=== PATIENT | female | born 1990 | race Caucasian/White ===

== ENCOUNTER 2017-04-06 14:43 | Emergency (ER) | payer SELFPAY ==
[~2017-04-06] VITALS: Ht 180.3 cm; Wt 88.4 kg
[~2017-04-06 14:43] MED LIST: ZITH250T PO
[2017-04-06 14:55] VITALS: BP 114/69; PULSE 90; RESP 16; TEMP 98.3; O2SAT 98
[2017-04-06] MEDS ORDERED: ALBUAER3 INH (15:26)
[2017-04-06] MEDS ORDERED: BENZ100 PO (15:26)
[2017-04-06] MEDS ORDERED: AZIT250T3 PO (15:26)
--- NOTE | 2017-04-06 15:27 | PD ---
HPI Chief Complaint: Cold / Flu Symptoms Time Seen by Provider: 15:06 Travel History International Travel<30 days: No Contact w/Intl Traveler<30days: No Traveled to known affect area: No History of Present Illness HPI 27-year-old female arrives with fever for about 12-18 hours. She's had a productive cough. She reports total body fatigue. It was very difficult for her to work due to the fever and cough. The daughter has very similar symptoms. Total body aches and pains also noted. Severity moderate. Onset gradual. No international travel. Motrin helped with the fever temporarily. PFSH Past Medical History Diabetes: No Diminished Hearing: No Immunizations Current: No ?: Not LMP: 03/17/17 : 1 Para: 1 Past Surgical History Oral Surgery: Yes (WISDOM TEETH) Tonsillectomy: Yes Other Surgery: Yes (BRANCHIAL CLEFT CYST REMOVAL) Social History Alcohol Use: No Tobacco Use: No Substance Use: No Allergies-Medications (Allergen,Severity, Reaction): Coded Allergies: Molds and Smuts (Verified Allergy, Severe, COUGH, 04/06/17) Reported Meds & Prescriptions Reported Meds & Active Scripts Active Proair Hfa 8.5 GM Inh (Albuterol Sulfate) 90 Mcg/Act Aer 2 Puff INH Q4-6H PRN 108 mcg/actuation Tessalon Perles (Benzonatate) 100 Mg Cap 200 Mg PO TID PRN Azithromycin 250 Mg Tab 250 Mg PO DAILY Review of Systems Except as stated in HPI: all other systems reviewed are Neg Physical Exam Narrative GENERAL: 27-year-old female pleasant well-nourished well-developed occasional cough SKIN: Focused skin assessment warm/dry. HEAD: Atraumatic. Normocephalic. EYES: Pupils equal and round. No scleral icterus. No injection or drainage. ENT: No nasal bleeding or discharge. Mucous membranes pink and moist. NECK: Trachea midline. No JVD. CARDIOVASCULAR: Regular rate and rhythm. No murmur appreciated. RESPIRATORY: Occasional cough. Wheezing. GASTROINTESTINAL: Abdomen soft, non-tender, nondistended. Hepatic and splenic margins not palpable. MUSCULOSKELETAL: No obvious deformities. No clubbing. No cyanosis. No edema. NEUROLOGICAL: Awake and alert. No obvious cranial nerve deficits. Motor grossly within normal limits. Normal speech. PSYCHIATRIC: Appropriate mood and affect; insight and judgment normal. Data Data Last Documented VS Vital Signs Date Time Temp Pulse Resp B/P Pulse Ox O2 Delivery O2 Flow Rate FiO2 04/06/17 14:55 98.3 90 16 114/69 98 Vital signs reviewed Orders Azithromycin (Zithromax) (04/06/17 15:30) Albuterol-Ipratropium Neb (Duoneb Neb) (04/06/17 15:30) Dexamethasone Inj (Decadron Inj) (04/06/17 15:30) Albuterol Hfa Inh (Proair Hfa Inh) (04/06/17 15:30) MDM Medical Decision Making Medical Screen Exam Complete: Yes Emergency Medical Condition: Yes Medical Record Reviewed: Yes Differential Diagnosis Pneumonia, pharyngitis, postnasal drip, viral syndrome Narrative Course Patient could have community-acquired pneumonia. She is also a smoker with some wheezing on exam. Scripts as below. Diagnosis Primary Impression: Fever Qualified Code: R50.9 - Fever, unspecified fever cause Additional Impression: Cough Referrals: DR YU 2 days Additional Instructions: You have a choice when it comes to health care, and we are glad that you chose [facility]. Hopefully, we have met your expectations on today's visit. You are welcome to return to [facility] at any time, as we are committed to meeting the health care needs of our community. Med/Other Pt SpecificInfo: Prescription(s) given Scripts Albuterol 8.5 GM Inh (Proair Hfa 8.5 GM Inh)90 Mcg/Act Aer2 Puff INH Q4-6H PRN ( SHORTNESS OF BREATH) #1 INHALER Ref 0 108 mcg/actuation Prov:Ivan Glass MD 04/06/17 Benzonatate (Tessalon Perles)100 Mg [id number] Mg PO TID PRN (COUGH) #10 CAP Ref 0 Prov:Ivan Glass MD 04/06/17 Azithromycin 250 Mg [id number] Mg PO DAILY #4 TAB Ref 0 Prov:Ivan Glass MD 04/06/17 Disposition: 01 DISCHARGE HOME Condition: Stable Ivan Glass MD Apr 06, 2017 15:27
[2017-04-06] MEDS ORDERED: ALBUTEROL SULFATE 90 MCG/ACT HFA 8 GM INHALER INH ONE (15:30)
[2017-04-06] MEDS ORDERED: RESP: ALBUTEROL 2.5 MG/IPRATROPIUM 0.5 MG NEB (SCH) INH ONE (15:30)
[2017-04-06] MEDS ORDERED: AZITHROMYCIN 250 MG TAB PO ONE (15:30)
[2017-04-06] MEDS ORDERED: DEXAMETHASONE SOD PHOS 4 MG/ML VIAL IM ONE (15:30)
== END 2017-04-06 16:07 | disposition home or self-care (01) ==
LOC: PHEFT 14:43
DX: R50.9 Fever, unspecified (principal); R05 Cough; R53.83 Other fatigue
CPT/HCPCS: 94664; 96372; 99284; J1100